=== PATIENT | female | born 1950 | race Hispanic/Latino ===

== ENCOUNTER 2020-12-17 00:01 | Emergency (ER) | payer MEDICARE ==
[~2020-12-17] VITALS: Ht 167.6 cm; Wt 126.6 kg
[~2020-12-17 00:01] MED LIST: AMBIEN10 MG PO; BENADRYL25 M1 PO; COREG12.5 MG PO; CYMBALTA30 MG; DIAZEPAM5 MG PO; DIGOXIN125 MCG PO; FUROSEMIDE40 MG PO; LISINOPRIL10 MG PO; METFORMIN HCL500 MG PO; MONTELUKAST SOD10 MG PO; NORCO 7.5-3251 EACH PO; POTASSIUM CHLO20 ME1 PO; PROAIR HFA INH8.5 GM IH; SYNTHROID100 MCG PO; WARFARIN SODIUM3 MG PO
[2020-12-17 01:04] LABS: BASOPHILS # (AUTO) 0.1 (0.0-0.1); BASOPHILS % 0.6 % (0.0-1.0); EOSINOPHILS # (AUTO) 0.2 (0.0-0.4); EOSINOPHILS % 1.8 % (0.0-6.0); HEMATOCRIT 35.6 % (34.2-44.1); HEMOGLOBIN 10.8 g/dL (12.0-16.0); LYMPHOCYTES # (AUTO) 3.2 (1.0-3.2); LYMPHOCYTES % 27.2 % (18.0-39.1); MEAN CORPUSCULAR HEMOGLOBIN 24.1 pg (28-32); MEAN CORPUSCULAR HGB CONC 30.3 g/dL (31-35); MEAN CORPUSCULAR VOLUME 79.5 fL (81-99); MONOCYTES # (AUTO) 0.7 (0.2-0.8); MONOCYTES % 5.9 % (4.4-11.3); NEUTROPHILS # (AUTO) 7.5 (2.1-6.9); NEUTROPHILS % 64.1 % (38.7-80.0); PLATELET COUNT 320 x10e3/uL (140-360); RED BLOOD COUNT 4.48 x10e6/uL (3.6-5.1); RED CELL DISTRIBUTION WIDTH 17.2 % (11.7-14.4)
[2020-12-17] MEDS: ACETAMINOPHEN 325 MG TAB PO ONE ×2 (01:12→01:13)
[2020-12-17 01:19] LABS: ALANINE AMINOTRANSFERASE 15 IU/L (0-55); ALBUMIN 3.3 g/dL (3.5-5.0); ALBUMIN/GLOBULIN RATIO 0.8 (0.8-2.0); ALKALINE PHOSPHATASE 103 IU/L (40-150); ANION GAP 12.9 mmol/L (8-16); BLOOD UREA NITROGEN 16 mg/dL (7-26); BUN/CREATININE RATIO 19 (6-25); CALCIUM 8.7 mg/dL (8.4-10.2); CARBON DIOXIDE 27 mmol/L (22-29); CHLORIDE 105 mmol/L (98-107); CREATINE KINASE 73 IU/L (29-168); CREATININE, SERUM 0.86 mg/dL (0.57-1.11); EST GLOMERULAR FILTRATION RATE > 60 ML/MIN (60-); GLUCOSE 130 mg/dL (74-118); POTASSIUM 3.9 mmol/L (3.5-5.1); SODIUM 141 mmol/L (136-145)
[2020-12-17] MEDS ORDERED: ACETAMINOPHEN 325 MG TAB ONE (01:19)
[2020-12-17 03:01] VITALS: BP 113/67
== END 2020-12-17 04:39 | disposition home or self-care (01) ==
LOC: ER 00:05
DX: G89.29 Other chronic pain (principal); I50.9 Heart failure, unspecified; R60.9 Edema, unspecified; M79.7 Fibromyalgia; M81.0 Age-related osteoporosis without current pathological fracture; Z85.118 Personal history of other malignant neoplasm of bronchus and lung; Z95.0 Presence of cardiac pacemaker
CPT/HCPCS: 36415; 71045; 80053; 82550; 82553; 83880; 84484; 85025; 93005; 99284

== ENCOUNTER → 2025-04-25 | Day surgery (SDC) | payer MEDICARE ==
[~2025-04-25] MED LIST changes: +ASPIRIN81 MG PO; +B12; +BACLOFEN10 MG PO; +CLOPIDOGREL75 MG PO; +COLCRYS0.6 MG PO; +DEXTROSE 50% SYRINGE 50 ML IV ONE; +DIPHENHYDRAMINE HCL TOP; +ELIQUIS5 MG PO; +FENTANYL CITRATE/PF 100MCG/2 ML INJ ONE; +FEROSUL325 MG PO; +FLOMAX0.4 MG PO; +GINKGO BILOBA40 M1; +HYDROCORTISO453.6 GM TOP; +LAMOTRIGINE100 MG PO; +LIDOCAINE HCL 2% LOCAL INJ 5 ML SDV VIAL INJ ONE; +OMEPRAZOLE40 MG PO; +OZEMPIC0.25 MG/02; +PLAQUENIL200 MG PO; +POTASSIUM; +PREDNISONE5 G1; +PROPOFOL IV EMULSION 10 MG/ML 20 ML VIAL ONE; +PROPOFOL IV EMULSION 50 ML IV ONE; +RINVOQ30 MG; +SENSIPAR30 MG PO; +STOOL SOFTENER50 MG PO; +SULFASALAZINE500 MG PO; +TRAZODONE HCL100 MG PO; +VITAMIN D; +[UNRECOGNIZED DRUG - OTHER]
[2025-04-25 10:11] LABS: BASOPHILS % 0.5 % (0.0-1.0); EOSINOPHILS % 3.7 % (0.0-6.0); LYMPHOCYTES % 36.3 % (18.0-39.1); MONOCYTES % 7.9 % (4.4-11.3); NEUTROPHILS % 51.3 % (38.7-80.0); RED CELL DISTRIBUTION WIDTH 16.5 % (11.7-14.4)
[2025-04-25] MEDS: DEXTROSE 5% 250ML 250 ML IV ONE (10:24)
[2025-04-25] MEDS: LACTATED RINGER'S 1,000 ML ONE (10:24)
[2025-04-25 13:57] VITALS: TEMP 98.3
[2025-04-25 14:45] VITALS: BP 130/83; PULSE 80; RESP 16; O2SAT 98
== END | disposition home or self-care (01) ==
LOC: OR 09:06
PROVIDERS: ATTEND Internal Medicine Gastroenterology
DX: Z12.11 Encounter for screening for malignant neoplasm of colon (principal); D12.3 Benign neoplasm of transverse colon; D12.4 Benign neoplasm of descending colon; K57.30 Diverticulosis of large intestine without perforation or abscess without bleeding; K52.9 Noninfective gastroenteritis and colitis, unspecified; K64.8 Other hemorrhoids; K22.2 Esophageal obstruction; K20.90 Esophagitis, unspecified without bleeding; K29.50 Unspecified chronic gastritis without bleeding; K31.A11 Gastric intestinal metaplasia without dysplasia, involving the antrum; K31.A12 Gastric intestinal metaplasia without dysplasia, involving the body (corpus); K31.89 Other diseases of stomach and duodenum; Z98.84 Bariatric surgery status; I11.0 Hypertensive heart disease with heart failure; I50.9 Heart failure, unspecified; Z95.0 Presence of cardiac pacemaker; E78.5 Hyperlipidemia, unspecified; E66.9 Obesity, unspecified; G47.33 Obstructive sleep apnea (adult) (pediatric); E11.9 Type 2 diabetes mellitus without complications; Z79.84 Long term (current) use of oral hypoglycemic drugs; M79.7 Fibromyalgia; C34.90 Malignant neoplasm of unspecified part of unspecified bronchus or lung; F41.9 Anxiety disorder, unspecified; M19.91 Primary osteoarthritis, unspecified site; Z79.899 Other long term (current) drug therapy; Z79.02 Long term (current) use of antithrombotics/antiplatelets
CPT/HCPCS: 36415; 43239; 43450; 45380; 45385; 82948; 85025; 93005; J2003; J2470; J2704 ×2; J3010; J7121; J7799; 45378

== ENCOUNTER → 2025-05-27 | Outpatient (REF) | payer MEDICARE ==
[~2025-05-27] MED LIST changes: -DEXTROSE 50% SYRINGE 50 ML IV ONE; -FENTANYL CITRATE/PF 100MCG/2 ML INJ ONE; -LIDOCAINE HCL 2% LOCAL INJ 5 ML SDV VIAL INJ ONE; -PROPOFOL IV EMULSION 10 MG/ML 20 ML VIAL ONE; -PROPOFOL IV EMULSION 50 ML IV ONE
== END ==
LOC: DX 10:01
PROVIDERS: ATTEND Nurse Practitioner
DX: R10.84 Generalized abdominal pain (principal); K50.00 Crohn's disease of small intestine without complications; K29.60 Other gastritis without bleeding; R14.0 Abdominal distension (gaseous); Z86.0100 Personal history of colon polyps, unspecified
CPT/HCPCS: 74250